=== PATIENT | female | born 2000 | race Caucasian/White ===

== ENCOUNTER 2023-04-30 17:27 | Emergency (ER) | payer OTHER, SELFPAY ==
[2023-04-30 17:50] VITALS: BP 122/74; PULSE 91; RESP 16; TEMP 36.2; O2SAT 100
--- NOTE | 2023-04-30 17:50 | ED.URI ---
HPI - URI/Sore Throat General Chief Complaint: Upper Respiratory Infection Stated Complaint: Sore Throat Source: patient, family and RN notes reviewed History of Present Illness HPI Narrative: 22 yo F presents to urgent care with complaints of a sore throat since last Saturday. Pt states she feels a little SOB but blames her swollen tonsils. Denies any fevers, chills, chest pain, SOB, cough, ear pain, or abdominal pain. Pt was seen at another urgent care last Saturday and tested negative for strep. Pt has taken some ibuprofen at home the other day. Related Data Home Medications Medication Instructions Recorded Confirmed escitalopram oxalate 20 mg tablet 20 mg PO DAILY 04/30/23 04/30/23 fluticasone propionate 50 50 mcg intranasal DIRECTED 04/30/23 04/30/23 mcg/actuation nasal spray,suspension Allergies Allergy/AdvReac Type Severity Reaction Status Date / Time No Known Allergies Allergy Verified 04/30/23 17:43 Review of Systems Review of Systems: Pertinent positives and pertinent negatives per HPI. PMFSH Comments At the time of my signature, I reviewed and agree with the nursing past medical, surgical, social, and family history. There is no relevant family history pertinent to the patient complaint. Exam Narrative: GENERAL: This is a well-nourished, well-developed patient, in no apparent distress. HEAD: normocephalic, atraumatic. EYES: Sclera clear/white. Vision is grossly intact. EARS: External ears normal, auditory canals clear and without drainage, TMs normal without perforation. Hearing grossly intact. NOSE: External nose normal with no obvious nasal discharge, nares without redness, no rhinorrhea. THROAT: Mucous membranes moist, posterior pharynx erythremic. Tonsils are 2+ bilaterally. no exudate. NECK: Neck supple, non-tender without lymphadenopathy, masses or thyromegaly. CARDIOVASCULAR: Regular rate and rhythm without murmurs, gallops, or rubs. RESPIRATORY: Clear to auscultation. Breath sounds equal bilaterally. No wheezes, rales, or rhonchi. GASTROINTESTINAL: Abdomen soft, non-tender, nondistended. Bowel sounds are active. No hepato-splenomegaly, or palpable masses. No guarding. SKIN: warm, intact with no suspicious lesions or rash, good texture and turgor. NEURO: awake, alert, and oriented to person, place and time. There were no obvious focal neurologic abnormalities. Course Course Level of Care: Express Care Visit Vital Signs Vital signs: Vital Signs Temperature 97.2 F L 04/30/23 17:50 Pulse Rate 91 04/30/23 17:50 Respiratory Rate 16 04/30/23 17:50 Blood Pressure 122/74 04/30/23 17:50 Pulse Oximetry 100 04/30/23 17:50 Temperature 97.2 F L 04/30/23 17:50 Pulse Rate 91 04/30/23 17:50 Respiratory Rate 16 04/30/23 17:50 Blood Pressure 122/74 04/30/23 17:50 Pulse Oximetry 100 04/30/23 17:50 reviewed MDM - URI/Sore Throat MDM Narrative Medical decision making narrative: Rapid strep is negative in the office; however we will send to the lab for confirmation; there is a small percentage chance that it can come back positive; if it is, we will call you in 2-3days; and your prescription will be call in to your pharmacy. However, there is NO indication for antibiotic at this time. -Increase your fluids and Vitamin C. -Oral rinses such as: Salt water gargles and/or may use topical anesthetic (eg. Chloraseptic spray) or lozenges to relieve dryness or throat pain. -Take tylenol and ibuprofen as needed for pain and fever as directed. -Frequent hand washing or hand rubber compounder mixer is one of the best ways to prevent spread of infection. -Follow up with primary care provider in 2-3 days if condition is not improving or seek ER visit if your child starts breathing fast/has trouble breathing, is not drinking enough fluids, muffle voice, difficulty opening the mouth or will not wake up or will not interact with you. Differential Diagnosis Differential diagnosi
== END 2023-04-30 18:16 | disposition home or self-care (01) ==
PROVIDERS: Emergency Provider Nurse Practitioner Family; PCP Physician Assistant
DX: J02.9 Acute pharyngitis, unspecified (principal)
CPT/HCPCS: 36416; 86308; 87081; 87880; 99203; G0463

== ENCOUNTER 2024-05-28 10:25 | Emergency (ER) | payer OTHER, SELFPAY ==
--- NOTE | 2024-05-28 10:48 | ED.URI ---
HPI - URI/Sore Throat General Chief Complaint: Upper Respiratory Infection Stated Complaint: sorethroat,nausea History of Present Illness HPI Narrative: 23-year-old female presented for complaint of sore throat worsening for 3 days. Endorses painful swallow, body aches, subjective fever, nausea and vomiting last night. She has been taking ibuprofen. Related Data Allergies Allergy/AdvReac Type Severity Reaction Status Date / Time No Known Allergies Allergy Verified 05/28/24 10:51 Review of Systems Review of Systems: CONSTITUTIONAL: Reports body aches, fever, chills, or sweats. EYES: Denies visual changes, redness, or discharge. ENT: Reports sore throat Denies rhinorrhea, congestion, or otalgia. CARDIOVASCULAR: Denies chest pain, palpitations, or edema. RESPIRATORY: Denies dyspnea. GASTROINTESTINAL: Denies abdominal pain, reports nausea, vomiting SKIN: Denies rash, itching, or wounds. MUSCULOSKELETAL: Denies back pain, joint pain, or myalgia. Exam Narrative: GENERAL: Ill-appearing, nontoxic no acute distress. EYES: conjunctivae clear ENT: Mucous membranes moist. TM pearly morgan with normal light reflex bilaterally; no tragal tenderness. Oropharynx severely erythematous without lesions. Tonsils enlarged 3+ with exudate. No drooling, no hoarseness, no trismus, uvula midline. No tripod positioning, hot potato voice, or soft palate swelling. NECK: Supple. Bilateral anterior cervical lymphadenopathy CHEST: Clear to auscultation, breath sounds equal. No respiratory distress, speaks in full sentences. HEART: Regular rate and rhythm. No murmur heard. SKIN: Warm, dry, no rash. NEURO: Alert and oriented x3. Course Course Emergency Course: Patient is aware of diagnosis, understands and agrees to treatment plan. Anticipatory guidance given. Patient agrees to follow-up as directed and is aware of reasons to seek care at the emergency department. Portions of this record may have been created with voice recognition software Level of Care: Express Care Visit MDM - URI/Sore Throat MDM Narrative Medical decision making narrative: Positive strep result reviewed with pt. Advise supportive treatments. Patient is appropriate for outpatient treatment and follow-up. Differential Diagnosis Differential diagnosis: Likely upper respiratory infection, viral infection and pharyngitis Discharge Plan Discharge Clinical Impression: Strep pharyngitis Patient Disposition: Home, Self-Care Condition: Stable Instructions: Antibiotic Form, Strep Throat (ED) Additional Instructions: - Take the antibiotic as directed. Fever and sore throat typically resolve within one to three days. Most patients can return to work, after 12 to 24 hours of antibiotic therapy, provided you are fever free and otherwise well. -Eat and drink things that are easy to swallow, like soft foods, cool liquids, tea with honey, or popsicles . -Salt water gargles and/or may use topical anesthetic ( Chloraseptic spray) or lozenges to relieve dryness or throat pain -Alternate Tylenol and ibuprofen as needed for pain and fever as directed. -Frequent hand washing or hand lead massage therapist is one of the best ways to prevent spread of infection. Throw away the toothbrush after 24hours of antibiotic. -Follow up with primary care provider in 2-3 days if condition is not improving -Go to the ER if you have trouble breathing, cannot drink enough fluids, have muffled voice or drooling, difficulty opening your mouth, or severe swelling. Prescriptions: New amoxicillin 500 mg tablet 1,000 mg PO DAILY 10 Days Qty: 20 0RF prednisone 20 mg tablet 40 mg PO DAILY 3 Days Qty: 6 0RF Follow-up/Referrals: Kimberly,LIVIER Cochran [Primary Care Provider] - Stand Alone Forms: Work/School Release IP Time of Disposition: 11:07
[2024-05-28 11:03] LABS: EDSTREPNEGPOS1 Positive (Negative)
[2024-05-28 11:25] VITALS: BP 104/76; PULSE 98; RESP 16; TEMP 37.2; O2SAT 100
== END 2024-05-28 11:11 | disposition home or self-care (01) ==
PROVIDERS: Emergency Provider Nurse Practitioner Family; PCP Physician Assistant
DX: J02.0 Streptococcal pharyngitis (principal)
CPT/HCPCS: 87880; 99213; G0463

== ENCOUNTER 2024-07-31 22:11 | Emergency (ER) | payer OTHER, SELFPAY ==
[2024-07-31 22:13] VITALS: BP 113/62; PULSE 95; RESP 13; TEMP 36.4; O2SAT 99
--- NOTE | 2024-07-31 23:05 | ED.EAR ---
HPI - Ear Problem General Chief complaint: Ear Stated complaint: L ear pain Time Seen by Provider: 07/31/24 22:35 Source: patient Mode of arrival: ambulatory Limitations: no limitations History of Present Illness HPI Narrative: This is a 23-year-old female who presents to the ED with chief complaint of a left ear pain and drainage beginning earlier this morning. Reports that she has been feeling a little congested lately has not been feeling unwell overall. Denies sore throat, cough, chest pain, shortness of breath. Denies any rash. States that she has had tumor 0 the past. Denies history of diabetes or immunocompromised condition. Related Data Allergies Allergy/AdvReac Type Severity Reaction Status Date / Time No Known Allergies Allergy Verified 07/31/24 22:11 Review of Systems Review of Systems: All systems as dictated in HPI Exam Narrative: GENERAL: Well-appearing, well-nourished, and in no acute distress. HEAD: Normocephalic, atraumatic. EYES: PERRLA and EOMI. ENT: Left ear canal swollen and with purulent drainage. Unable to visualize TM. No pain with tragus pull. No mastoid erythema or tenderness. Right ear canal normal. Right TM normal. Nares clear, no rhinorrhea or epistaxis. Mucous membranes moist. Two to 3+ tonsillar hypertrophy bilaterally. Slight erythematous posterior oropharynx although no exudates. No drooling, trismus or muffled voice. NECK: Supple. No adenopathy or masses. CHEST: No respiratory distress. Clear to auscultation. No wheezes rales or rhonchi HEART: Regular rate and rhythm. No murmur heard. Normal peripheral pulses. ABDOMEN: Soft, nontender, nondistended, normal active bowel sounds. MSK: Normal range of motion. No edema. SKIN: Warm, dry, no rash. NEURO: Alert and oriented x4. No focal deficits. PSYCH: Normal mood and affect. Course Vital Signs Vital signs: Vital Signs Temperature 97.6 F 07/31/24 22:13 Pulse Rate 95 07/31/24 22:13 Respiratory Rate 13 07/31/24 22:13 Blood Pressure 113/62 07/31/24 22:13 Pulse Oximetry 99 07/31/24 22:13 Oxygen Delivery Room Air 07/31/24 22:13 Temperature 97.6 F 07/31/24 22:13 Pulse Rate 95 12/06/24 22:13 Respiratory Rate 13 07/31/24 22:13 Blood Pressure 113/62 07/31/24 22:13 Pulse Oximetry 99 07/31/24 22:13 Oxygen Delivery Room Air 07/31/24 22:13 Medical Decision Making MDM Narrative Medical decision making narrative: This is a 23-year-old female who presents to the ED for chief complaint of congestion and left ear pain with drainage. vitals are normal. Exam remarkable for the above with evidence of left-sided otitis externa. There is also tonsillar hypertrophy so strep swabs were sent. Swabs are positive for group a strep. Patient was given ear wick, ciprofloxacin drops for the otitis externa. not exhibiting signs of malignant otitis externa or deep space infection. She is not toxic appearing Rx for Augmentin prescribed for streptococcal pharyngitis. Patient will be discharged in stable condition. Supportive measures discussed and return precautions given. Patient is understanding and agreeable with plan for discharge with PCP follow-up. Vital Signs Vital Signs: Vital Signs Temperature 97.6 F 07/31/24 22:13 Pulse Rate 95 07/31/24 22:13 Respiratory Rate 13 07/31/24 22:13 Blood Pressure 113/62 07/31/24 22:13 Pulse Oximetry 99 07/31/24 22:13 Oxygen Delivery Room Air 07/31/24 22:13 Temperature 97.6 F 07/31/24 22:13 Pulse Rate 95 07/31/24 22:13 Respiratory Rate 13 07/31/24 22:13 Blood Pressure 113/62 07/31/24 22:13 Pulse Oximetry 99 07/31/24 22:13 Oxygen Delivery Room Air 07/31/24 22:13 Lab Data Labs: Lab Results 07/31/24 Range/Units 23:33 Group A Strep (PCR) Detected A (Negative) Discharge Plan Discharge Clinical Impression: Otitis externa, Strep pharyngitis Patient Disposition: Home, Self-Care Condition: Stable Instructions: Antibiotic Form, Swimmer's Ear (ED) Additional Instructions: Your exam today shows otitis externa. Please take antibiotic drops as prescribed. Follow-up with PCP on this issue. If you have any new or worsening symptoms please return to the ER for further evaluation. Prescriptions: New ciprofloxacin-dexamethasone 0.3-0.1 % drops,suspension 4 drp LEFT EAR Q12H 7 Days Qty: 7.5 0RF amoxicillin-pot clavulanate 875-125 mg tablet 1 tablet PO Q12H Qty: 14 0RF No Action amoxicillin 500 mg tablet 1,000 mg PO DAILY 10 Days Qty: 20 0RF prednisone 20 mg tablet 40 mg PO DAILY 3 Days Qty: 6 0RF Follow-up/Referrals: Kimberly,LIVIER Cochran [Primary Care Provider] - Stand Alone Forms: Work/School Release IP Time of Disposition: 23:07
[2024-07-31] MEDS: CIPROFLOXACIN HC OTIC 10 ML 3 DROP LEFT EAR (23:21)
[2024-08-01 00:03] LABS: Strep Group A RT-PCR DETECTED (Negative)
== END 2024-08-01 00:30 | disposition home or self-care (01) ==
PROVIDERS: Emergency Provider Physician Assistant; PCP Physician Assistant
DX: H60.92 Unspecified otitis externa, left ear (principal); J02.0 Streptococcal pharyngitis
CPT/HCPCS: 87651; 99283; A9270